=== PATIENT | male | born 1940 | race Caucasian/White ===

== ENCOUNTER 2016-10-20 08:12 | Day surgery (SDC) | payer MEDICARE, OTHER ==
[~2016-10-20] VITALS: Ht 183 cm; Wt 80.4 kg
[2016-10-20] VITALS (13 sets, daily range): BP systolic 138–174; BP diastolic 69–105; PULSE 55–74; TEMP 98.8
[~2016-10-20 08:12] MED LIST: BENAZEPRIL PO; BYETTA SQ; FERROUS SU325 MG/TAB PO; FLUOXETINE PO; FOLIC ACID PO; GLUCOPHAGE1000 MG PO; KLOR-CON 1010 MEQ PO; LIPITOR 10MG10 MG PO; LOTREL 10 MG-201 CAP PO; MIRAPEX 0.125MG PO; TRICOR145 MG PO; VITAMIN C1 TAB PO; WELLBUTRIN PO
[2016-10-20] MEDS ORDERED: FOSAMAX 70MG TA70 MG PO (08:59)
[2016-10-20 09:13] LABS: HEMOGLOBIN 12.5 g/dl (13.5-18.0); MEAN CELL VOLUME 91 fl (80.0-100.0); MEAN CORPUSCULAR HEMOGLOBIN 31 pg (27.0-31.0); MEAN CORPUSCULAR HGB CONC 34 g/dl (33.0-37.0); MEAN PLATELET VOLUME 9.8 fl (7.4-10.4); PLATELET COUNT 188 K/mm3 (130-400); PROTHROMBIN TIME 11.1 SECONDS (9.7-12.8); RED BLOOD COUNT 4.05 M/mm3 (4.20-5.60); REDCELL DISTRIBUTION WIDTH-CV 12.5 % (11.5-14.5); WHITE BLOOD COUNT 4.5 K/mm3 (4.8-10.8)
[2016-10-20 09:14] LABS: HEMATOCRIT 36.8 % (42.0-52.0)
[2016-10-20] MEDS ORDERED: DITROPAN XL10 MG PO (09:17)
[2016-10-20] MEDS ORDERED: MIRAPEX0.5 MG PO (09:19)
[2016-10-20] MEDS ORDERED: PROZAC 20MG20 MG PO (09:21)
[2016-10-20] MEDS ORDERED: LOTENSIN20 MG PO (09:23)
[2016-10-20 09:24] LABS: CALCIUM 9.1 mg/dL (8.4-10.2); CREATININE, serum 0.78 mg/dL (0.66-1.25); POTASSIUM 3.3 mmol/L (3.4-5.0)
[2016-10-20] MEDS ORDERED: PENTASA500 MG PO (09:24)
[2016-10-20] MEDS ORDERED: BYETTA 10M600 MCG/SY SQ (09:26)
[2016-10-20] MEDS ORDERED: VITAMIN C500 MG PO (09:27)
[2016-10-20] MEDS ORDERED: CALCIUM 600-D 61 TAB PO (09:28)
[2016-10-20] MEDS ORDERED: SENOKOT S 50 MG1 TAB PO (09:29)
== END 2016-10-20 18:15 | disposition home or self-care (01) ==
LOC: EUO 08:12
PROVIDERS: Internal Medicine Cardiovascular Disease
DX: I35.0 Nonrheumatic aortic (valve) stenosis (principal); I35.8 Other nonrheumatic aortic valve disorders; I51.7 Cardiomegaly; R01.1 Cardiac murmur, unspecified; I10 Essential (primary) hypertension; G47.31 Primary central sleep apnea; Z85.46 Personal history of malignant neoplasm of prostate; E11.9 Type 2 diabetes mellitus without complications; Z79.84 Long term (current) use of oral hypoglycemic drugs; Z80.1 Family history of malignant neoplasm of trachea, bronchus and lung; Z87.891 Personal history of nicotine dependence; E78.2 Mixed hyperlipidemia
CPT/HCPCS: C1760; C1894; G9654; J2250; J2704; J3010; J3480; Q9967

== ENCOUNTER → 2017-01-03 | Outpatient (CLI) | payer MEDICARE, OTHER ==
[~2017-01-03] MED LIST changes: +BYETTA 10M600 MCG/SY SQ; +CALCIUM 600-D 61 TAB PO; +DITROPAN XL10 MG PO; +FOSAMAX 70MG TA70 MG PO; +LOTENSIN20 MG PO; +MIRAPEX0.5 MG PO; +PENTASA500 MG PO; +PROZAC 20MG20 MG PO; +SENOKOT S 50 MG1 TAB PO; +VITAMIN C500 MG PO
== END ==
LOC: COL.RAD 09:30
DX: C61 Malignant neoplasm of prostate (principal)
CPT/HCPCS: A9503

== ENCOUNTER → 2017-05-23 | Outpatient (RCR) | payer MEDICARE, OTHER | END | disposition home or self-care (01) | LOC: COL.CR | DX: Z48.812 Encounter for surgical aftercare following surgery on the circulatory system (principal); Z95.2 Presence of prosthetic heart valve; I10 Essential (primary) hypertension; E78.5 Hyperlipidemia, unspecified ==

== ENCOUNTER 2018-02-05 08:27 | Day surgery (SDC) | payer MEDICARE, OTHER ==
[~2018-02-05] VITALS: Ht 180.3 cm; Wt 84.9 kg
[~2018-02-05 08:27] MED LIST changes: -CALCIUM 600-D 61 TAB PO; +CALCIUM CITRATE1 TA7 PO; -LIPITOR 10MG10 MG PO; +LIPITOR20 MG PO
[2018-02-05] MEDS ORDERED: FOSAMAX 70MG TA70 MG PO (08:49)
[2018-02-05] MEDS ORDERED: NORVASC 5MG5 MG/TAB PO (08:52)
[2018-02-05] MEDS ORDERED: ZESTORETIC 12.51 TA1 PO (08:55)
[2018-02-05] MEDS ORDERED: LOPRESSOR 550 MG/TAB PO (08:57)
[2018-02-05] MEDS ORDERED: TYLENOL 325MG325 MG PO (08:58)
[2018-02-05] MEDS ORDERED: ALIGN PO (09:00)
[2018-02-05] MEDS ORDERED: MIRAPEX0.5 MG PO (09:01)
[2018-02-05 09:22] VITALS: BP 147/86; PULSE 71; TEMP 97.6
[2018-02-05 11:00] VITALS: BP 124/71; PULSE 70; TEMP 97
[2018-02-05 11:15] VITALS: BP 123/69; PULSE 67
== END 2018-02-05 11:40 | disposition home or self-care (01) ==
LOC: SDCO 08:27
DX: D12.2 Benign neoplasm of ascending colon (principal); K63.5 Polyp of colon; K55.20 Angiodysplasia of colon without hemorrhage; K57.30 Diverticulosis of large intestine without perforation or abscess without bleeding; K52.9 Noninfective gastroenteritis and colitis, unspecified; I10 Essential (primary) hypertension; G47.33 Obstructive sleep apnea (adult) (pediatric); M19.90 Unspecified osteoarthritis, unspecified site; E11.9 Type 2 diabetes mellitus without complications; F32.9 Major depressive disorder, single episode, unspecified; F17.210 Nicotine dependence, cigarettes, uncomplicated; Z85.46 Personal history of malignant neoplasm of prostate; Z95.2 Presence of prosthetic heart valve; Z96.653 Presence of artificial knee joint, bilateral; Z90.49 Acquired absence of other specified parts of digestive tract
CPT/HCPCS: J2704; J7030